=== PATIENT | female | born 1945 | race Caucasian/White ===

== ENCOUNTER → 2016-09-10 | Outpatient (CLI) | payer BC ==
[~2016-09-10] MED LIST: ASPCH81X PO; ATOR-22 PO; CALCTAB5 PO; COEN1CAP7 PO; DEXL30CA5 PO; FLAX100025 PO; FOLI1TAB7 PO; MISCCAP80 PO; MISCTAB78 PO; MULT-506 PO; OMEG10007 PO; PRM625 VA; ZNTT/150 PO
[2016-09-10 09:56] LABS: ALT/SGPT 25 U/L (12-78); BLOOD UREA NITROGEN 17 mg/dl (7-18); BUN/CREATININE RATIO 21.3 (10-20); CALCIUM 9.9 mg/dl (8.5-10.1); CARBON DIOXIDE 28 mmol/L (21-32); CHLORIDE 108 mmol/L (98-107); CHOLESTEROL 169 mg/dl (0-200); GLUCOSE 97 mg/dl (70-99); SODIUM 144 mmol/L (136-145); TRIGLYCERIDES 115 mg/dl (0-150); VERY LOW DENSITY LIPOPROT CALC 23 mg/dl
[2016-09-10 09:59] LABS: ALB/GLOB RATIO 1.2 (0.9-2); ALKALINE PHOSPHATASE 77 U/L (45-117); AST/SGOT 23 U/L (15-37); CHOLESTEROL/HDL RATIO 3.2; HDL CHOLESTEROL 53 mg/dl; LDL CHOLESTEROL CALCULATED 93 mg/dl
== END | disposition home or self-care (01) ==
LOC: C.LAB1850 07:43
PROVIDERS: ATTEND Family Medicine
DX: E78.00 Pure hypercholesterolemia, unspecified (principal); K21.9 Gastro-esophageal reflux disease without esophagitis; Z85.42 Personal history of malignant neoplasm of other parts of uterus

== ENCOUNTER → 2016-10-19 | Outpatient (CLI) | payer BC ==
--- NOTE | 2016-10-23 12:55 | CODING QUERY MEDICAL NECESSITY ---
CQSUPPORTING DIAGNOSIS NEEDED A supporting diagnosis is required for the test/procedure performed on this patient in order for us to be reimbursed by the patient's insurance. Please provide a supporting diagnosis for the following test/procedure listed below next to the test name along with your signature. *If there is no additional diagnosis for this patient that would support the following test/procedure please document that below next to the test/procedure. Test(s)/Procedure(s) that require a supporting diagnosis: DOS 10/19/16 VITAMIN D TEST Provider Signature: Date: Thank you Kenyatta Dill Health Information Management Once completed, please kindly fax back to [phone] For questions please call [phone]
== END ==
LOC: C.LAB1850 11:55
PROVIDERS: ATTEND Family Medicine
DX: L60.3 Nail dystrophy (principal)

== ENCOUNTER → 2016-12-15 | Outpatient (CLI) | payer BC ==
--- NOTE | 2016-12-15 14:42 | MAMMOGRAPHY REPORT ---
BILATERAL DIGITAL SCREENING MAMMOGRAM WITH CAD: 12/15/2016 CLINICAL HISTORY: Routine screening. Patient has no complaints. TECHNIQUE: Bilateral CC and MLO views were obtained. Current study was also evaluated with a Compute r Aided Detection (CAD) system. COMPARISON: Comparison is made to exams dated: 12/10/2015 mammogram, 12/06/2014 mammogram, 11/30/2013 alex mogram, 11/24/2012 mammogram, 11/18/2010 mammogram, and 11/15/2009 mammogram - [facility]. BREAST COMPOSITION: There are scattered areas of fibroglandular density in both breasts. FINDINGS: A linear scar marker overlies the 12:00 right breast, denoting an area of skin surgical sc ar. The parenchymal pattern is similar to prior mammograms. No new suspicious mass, architectural d istortion or cluster of microcalcifications is seen. IMPRESSION: ACR BI-RADS CATEGORY 1: NEGATIVE Stable post surgical changes in the right breast. There is no mammographic evidence of malignancy. A 1 year screening mammogram is recommended. The patient will receive written notification of the res ults. Approximately 10% of breast cancers are not detected with mammography. A negative mammographic report should not delay biopsy if a clinically suggestive mass is present. Hattie Lee M.D. ay/:12/15/2016 10:04:36 Turkey Roll Maker: Jennifer REA(Robin)(M), [facility] letter sent: Normal 1/2 BI-RADS Code: ACR BI-RADS Category 1: Negative
== END | disposition home or self-care (01) ==
LOC: C.MAMM 09:19
PROVIDERS: ATTEND Obstetrics & Gynecology
DX: Z12.31 Encounter for screening mammogram for malignant neoplasm of breast (principal)

== ENCOUNTER → 2017-06-14 | Outpatient (CLI) | payer BC ==
[~2017-06-14] MED LIST changes: -FOLI1TAB7 PO; +FOLI1TAB8 PO
[2017-06-14 10:13] LABS: ALT/SGPT 27 U/L (12-78); BLOOD UREA NITROGEN 14 mg/dl (7-18); BUN/CREATININE RATIO 18.2 (10-20); CALCIUM 9.3 mg/dl (8.5-10.1); CARBON DIOXIDE 28 mmol/L (21-32); CHLORIDE 107 mmol/L (98-107); CREATININE 0.76 mg/dl (0.60-1.20); GLUCOSE 91 mg/dl (70-99); POTASSIUM 3.5 mmol/L (3.5-5.1); SODIUM 140 mmol/L (136-145)
[2017-06-14 10:16] LABS: CHOLESTEROL 150 mg/dl (0-200); HDL CHOLESTEROL 50 mg/dl; LDL CHOLESTEROL CALCULATED 72 mg/dl; TRIGLYCERIDES 141 mg/dl (0-150); VERY LOW DENSITY LIPOPROT CALC 28 mg/dl
== END | disposition home or self-care (01) ==
LOC: C.LAB1850 08:56
PROVIDERS: ATTEND Family Medicine
DX: E78.00 Pure hypercholesterolemia, unspecified (principal)

== ENCOUNTER → 2018-02-02 | Outpatient (CLI) | payer BC ==
[~2018-02-02] MED LIST changes: +RANI150T85 PO; -ZNTT/150 PO
--- NOTE | 2018-02-02 14:55 | MAMMOGRAPHY REPORT ---
BILATERAL DIGITAL SCREENING MAMMOGRAM TOMOSYNTHESIS WITH CAD: 02/02/2018 CLINICAL HISTORY: Routine screening. Patient has no complaints. TECHNIQUE: The study was acquired using full field digital technology and interpreted from soft copy. Breast tomosynthesis in addition to standard 2D mammography was performed. Current study was also ev aluated with a Computer Aided Detection (CAD) system. COMPARISON: Comparison is made to exams dated: 12/15/2016 mammogram, 12/10/2015 mammogram, 12/06/2014 alex mogram, 11/30/2013 mammogram, 11/24/2012 mammogram, and 11/24/2011 mammogram - [facility]. BREAST COMPOSITION: There are scattered areas of fibroglandular density in both breasts. FINDINGS: A linear scar marker overlies the superior right breast. No suspicious mass, architectural distortion or cluster of microcalcifications is seen. IMPRESSION: ACR BI-RADS CATEGORY 1: NEGATIVE There is no mammographic evidence of malignancy. A 1 year screening mammogram is recommended.( 019) The patient will receive written notification of the results. Some breast cancers are not detected with mammography. A negative mammographic report should not bi y biopsy if a clinically suggestive mass is present. Hattie Lee M.D. ay/:02/02/2018 12:30:46 Senior Marketing Coordinator: Kathryn Reed, [facility] letter sent: Normal 1/2 BI-RADS Code: ACR BI-RADS Category 1: Negative
== END | disposition home or self-care (01) ==
LOC: C.MAMM 11:02
PROVIDERS: ATTEND Obstetrics & Gynecology
DX: Z12.31 Encounter for screening mammogram for malignant neoplasm of breast (principal)

== ENCOUNTER 2023-01-17 11:04 | Observation (INO) ==
[2023-01-17] MEDS ORDERED: SODIUM CHLORIDE 0.9% 1000ML 1,000 ML IV SCH (11:30)
[2023-01-17] MEDS ORDERED: SODIUM CHLORIDE 0.9% 500 ML IV SCH (11:30)
--- NOTE | 2023-01-17 11:48 | XRay Report ---
XR chest 1V portable CLINICAL HISTORY: weakness TECHNIQUE: Single frontal radiograph of the chest was obtained. Comparison: Comparison is made to chest radiograph 04/06/2014 FINDINGS: No lines and tubes are seen. Calcified aortic knob is seen. The lungs are clear. No evidence of pleur al effusion or pneumothorax. IMPRESSION: No acute chest disease. ACT 112: Negative or not required by law. Electronically signed by: Andrea Paulino M.D. 01/17/2023 11:46 AM
[2023-01-17 12:42] LABS: Basophils # (auto) 0.01 K/uL (0-0.2); Basophils % (auto) 0.1 %; Hematocrit (blood only) 35.3 % (37.0-47.0); Immature Granulocytes # (auto) 0.05 K/uL (0.01-0.20); Immature Granulocytes % (auto) 0.7 %; Lymphocytes % (auto) 10.5 %; Mean Corpuscular Hemoglobin 32.2 pg (25.0-34.0); Mean Corpuscular Volume 94.6 fL (80.0-100.0); Mean Platelet Volume 9.1 fL (9.4-12.4); Monocytes # (auto) 0.55 K/uL (0.11-0.59); Monocytes % (auto) 7.2 %; Neutrophils % (auto) 81.5 %; Platelet Count 205 K/uL (130-400); RDW Coefficient of Variation 13.7 % (11.5-14.5); RDW Standard Deviation 47.7 fL (36.4-46.3); Red Blood Count 3.73 M/uL (4.20-5.40); White Blood Count 7.61 K/ul (4.8-10.8)
--- NOTE | 2023-01-17 12:43 | Electrocardiogram Report ---
Test Reason : Blood Pressure : / mmHG Vent. Rate : 076 BPM Atrial Rate : 076 BPM P-R Int : 152 ms QRS Dur : 076 ms QT Int : 360 ms P-R-T Axes : 054 041 044 degrees QTc Int : 405 ms Normal sinus rhythm Normal ECG When compared with ECG of 03-SEP-2020 15:41, ST no longer depressed in Inferior leads Confirmed by Eber Jeter ([id number]) on 01/17/2023 12:43:39 PM Referred By: Confirmed By:Eber Jeter
[2023-01-17 12:51] LABS: Albumin Globulin Ratio 1.3 (0.9-2); Albumin Level 4.3 gm/dl (3.4-5.0); BUN Creatinine Ratio 15.1 (10-20); Bilirubin,Total 0.5 mg/dl (0.2-1.0); Creatinine Clr Calc Pharmacy 52.2 ml/min; Est GFR (African American) 76.1 ml/min; Est GFR (Non-African American) 65.6 ml/min; Globulin 3.2 gm/dl (2.5-4.0); Magnesium 1.9 mg/dl (1.7-2.4); Potassium 3.6 mmol/L (3.5-5.1); Total Protein 7.5 gm/dl (6.0-8.3)
[2023-01-17 13:10] LABS: Lyme Ab IgG w/WB Rflx Negative (Negative); Lyme Ab IgM w/WB Rflx Negative (Negative)
[2023-01-17] MEDS ORDERED: OPTIRAY 320 100ml IV ONE (13:13)
--- NOTE | 2023-01-17 13:23 | Emergency Department Note ---
Impression & Plan Febrile illness, acute, Abdominal pain, lower, Acute lactic acidosis, Acute hypotension ED Provider Note INFORMANT: Patient ED PROVIDER(S): Malik Royal MD CHIEF COMPLAINT: Fever and chills PLAN: Disposition: Admitted Condition: Good Outpatient prescription management: none Referral: None MEDICAL DECISION MAKING: Patient presented because of fever and chills. She also noted lower abdominal pain which had resolved. CT imaging was performed and did not reveal any acute intra-abdominal findings. Her CBC and chemistry panel were unremarkable. Patient did have an elevated lactate and her urinalysis was negative. Patient was hydrated and her lactate did clear. Her ECG was normal. Patient was still having chills. Blood cultures were obtained. I am concerned the patient may have a possible tickborne infection or may be bacteremia. She is on methotrexate. Patient was treated with IV doxycycline and Rocephin empirically. [facility] Case was discussed and diagnostics were reviewed. Patient was evaluated in the ER and admitted for further management. Discussed with manager program After review of the information above and other included data, I feel the patient requires admission. Triage Nursing notes reviewed and agree them. Vital Signs: reviewed and remarkable for hypotension which resolved Prior /Outside records reviewed: none Differential diagnosis: Viral syndrome, tickborne illness,Sepsis, UTI, pneumonia, metabolic, electrolyte abnormalities, cardiac sources, intracerebral event, toxicologic, neurologic, as well as other pathologies. Diagnostics, as interpreted by me: EC Lead ECG performed and revealed Normal sinus rhythm at 76 bpm, normal Farner, QRS normal. No elevation or depression. No PACs or PVCs Cardiac Monitoring: Cardiac monitoring ordered by me: The patient was placed on continuous cardiac monitoring and observed. It revealed a normal sinus rhythm at 80 beats per minute without ectopy or evidence of dysrhythmia. Medical decision rules: none Imaging studies: Chest x-ray. Findings: A chest x-ray was performed and revealed no pneumothorax, effusion, infiltrate, pulmonary edema, free air under the diaphragm, or wide mediastinum. Impression: No acute disease. CT scan of the abdomen pelvis is negative for acute process. I refer you to the EMR for further details. HPI: The patient is a 77year old female who presents to the Emergency Room with complaints of fever and chills. This started this week and is fluctuating. Patient also feels generally weak. The patient also notes the following associated symptoms, lower abdominal pain that was there at the beginning of the week but has improved. The patient has found no relieving factors. Current pain is rated as 0/10. Patient does spend a lot of time outdoors. No obvious bug bites or tick bites per her recall. Pt denies LOC, headache, diaphoresis, visual changes, neck pain, chest pain, breathing difficulties, nausea, vomiting, back pain, melena, hematochezia, urinary symptoms, numbness, lymphadenopathy, rash, or other complaints. PAST MEDICAL HISTORY: See Below, hyperlipidemia PAST SURGICAL HISTORY: See Below, knee replacement SOCIAL HISTORY: See Below, HOME MEDICATIONS: See Below ALLERGIES: See Below VITALS: See Below PHYSICAL EXAMINATION: GENERAL: Awake, tired-appearing, in no distress HENT: Normocephalic, atraumatic. Oropharynx unremarkable. EYES: Normal conjunctiva. Sclera non-icteric. NECK: Inspection normal. Non-tender. Supple. No nuchal rigidity. FROM. No masses. RESPIRATORY: Clear to auscultation. No wheezes. No rales. Normal respiratory effort. CARDIAC: Normal rate. Normal rhythm. No murmurs. No rubs. Extremities warm and well perfused. Pulses equal. No JVD. GI: Soft, non-distended. No tenderness to palpation. No rebound or guarding. No masses. RECTAL: Deferred. MUSCULOSKELETAL: Atraumatic. Chest examination reveals no tenderness. The back is symmetrical on inspection without obvious abnormality. There is no CVA tenderness to palpation. No joint edema. LOWER EXTREMITIES: Calves are equal size bilaterally and non-tender. No edema. No discoloration. NEURO: Normal sensorium. No sensory or motor deficits noted. SKIN: No rash or jaundice noted. 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 Hypercholesterolemia Nausea and vomiting after administration of anesthetic agent NAUSEA Polymyalgia rheumatica Restless legs syndrome PT REPORTS HX - NOT CURRENT PROBLEM Surgical History (Updated 09/30/22 @ 11:44 by Pat Garcia MD) History of foot surgery LEFT GREAT TOE History of hysteroscopy History of right cataract extraction History of total knee arthroplasty LEFT 2013 S/P colonoscopy HX S/P dilation and curettage HX S/P laparoscopy HX S/P MIGUEL-BSO (total abdominal hysterectomy and bilateral salpingo-oophorectomy) 2001 due to adenocarcinoma on D&C, final path showed no residual adenocarcinoma S/P tubal ligation S/P wisdom tooth extraction HX S/P wrist surgery Family History (Updated 09/30/22 @ 11:45 by Pat Garcia MD) Sister Breast cancer Family history of diabetes mellitus Father Heart disease Myocardial infarction Mother Osteoporosis Brother Brain bleed Bladder cancer Sister Lung cancer Denies family history of Ovarian cancer Prostate cancer Colorectal cancer Social History (Updated 09/30/22 @ 11:20 by Taylor Campos LPN) Smoking Status: Never smoker Second Hand Exposure: No; Do You Dip or Chew Tobacco: No; Tobacco Cessation Education Requested by Patient: No Hx Alcohol Use: Yes Alcohol type: wine Alcohol Intake Frequency: 4 or More x per/Week Hx Substance Use: No Preferred Language: Croatian Communication Ability: Effective Visual Impairment: No Limitations Hearing Ability: Hard of Hearing 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 Beliefs That Will Affect Care: None marital status: Current Living Situation: Spouse Current Living Situation Comment: Home with spoue current occupational status: retired How many Children do You have: 2 Other Information That Helps Us Care for You: No Feels Safe at Home: Yes Safety Concerns: Feels Safe At This Time Childhood Exposure to Second-Hand Smoke: Yes Diet: regular Diet Comment: regular caffeine: Yes during the past year weight has: increased > 10 lbs Dental Care, Regularly: Yes Physical Activity Frequency: Daily Seatbelt Use: always Sunscreen Use: Yes Assistive Devices: None Allergies Allergies Allergy/AdvReac Type Severity Reaction Status Date / Time grass pollen Allergy Unknown NASAL Verified 09/30/22 11:18 CONGESTION, SNEEZING house dust mite Allergy Unknown NASAL Verified 09/30/22 11:18 CONGESTION, SNEEZING No Known Drug Allergies Allergy Unknown . Verified 09/30/22 11:18 Home Meds Home Medications Medication Instructions Recorded Confirmed pfwubcshizwi-xuzcbozm-obppry tablet 1 tab PO DAILY 12/22/18 01/17/23 amoxicillin 500 mg capsule 2,000 mg PO UD PRN PRE DENTAL #4 04/18/19 01/17/23 caps aspirin 81 mg tablet,delayed 81 mg PO Q2D 06/29/19 01/17/23 release biotin 5,000 mcg disintegrating 5,000 mcg PO DAILY 05/15/20 01/17/23 tablet coenzyme Q10 100 mg capsule 200 mg PO DAILY 05/15/20 01/17/23 (CoQ-10) cholecalciferol (vitamin D3) 25 25 mcg PO Q2D 01/17/23 01/17/23 mcg (1,000 unit) tablet (Vitamin D3) folic acid 1 mg tablet 2 mg PO QAM 01/17/23 01/17/23 methotrexate sodium 2.5 mg tablet 15 mg PO WK 01/17/23 01/17/23 omeprazole 20 mg capsule,delayed 20 mg PO QAM 01/17/23 01/17/23 release prednisone 1 mg tablet 0.5 mg PO DAILY 01/17/23 01/17/23 Previous Rx's Medication Instructions Recorded montelukast 10 mg tablet 10 mg PO QAM #90 tabs 08/31/22 atorvastatin 20 mg tablet 20 mg PO QPM hypercholesterolemia 12/16/22 #90 tabs Results & Data (ED) Vital Signs Vital Signs - 24 hr 01/17/23 11:12 01/17/23 11:47 01/17/23 11:45 Temperature 36.7 C Temperature Source Oral Pulse Rate 71 73 Pulse Rate [Apical] Pulse Rate from SpO2 Sensor Respiratory Rate 20 Respiratory Effort / Characteristics Non-Labored Spontaneous Respiratory Depth Normal Respiratory Pattern Regular Blood Pressure 97/56 L Blood Pressure [Left Arm] Blood Pressure Mean 69 Blood Pressure Mean [Left Arm] Blood Pressure Position Sitting Pulse Oximetry 100 Oxygen Delivery Method Room Air Room Air Sepsis Recent Fever Within 48 Hours Yes Sepsis New/Unexplained Change in Mental Status No Sepsis Action Taken by Nursing No Action Required 01/17/23 11:57 01/17/23 11:57 01/17/23 12:00 Temperature Temperature Source Pulse Rate 79 73 Pulse Rate [Apical] Pulse Rate from SpO2 Sensor 78 73 Respiratory Rate 19 19 Respiratory Effort / Characteristics Respiratory Depth Respiratory Pattern Blood Pressure 133/78 Blood Pressure [Left Arm] Blood Pressure Mean 111 Blood Pressure Mean [Left Arm] Blood Pressure Position Pulse Oximetry 98 97 Oxygen Delivery Method Sepsis Recent Fever Within 48 Hours Sepsis New/Unexplained Change in Mental Status Sepsis Action Taken by Nursing 01/17/23 12:00 01/17/23 12:30 01/17/23 12:30 Temperature Temperature Source Pulse Rate 72 Pulse Rate [Apical] Pulse Rate from SpO2 Sensor 74 Respiratory Rate 15 Respiratory Effort / Characteristics Respiratory Depth Respiratory Pattern Blood Pressure 128/59 L 133/65 Blood Pressure [Left Arm] Blood Pressure Mean 92 89 Blood Pressure Mean [Left Arm] Blood Pressure Position Pulse Oximetry 96 Oxygen Delivery Method Sepsis Recent Fever Within 48 Hours Sepsis New/Unexplained Change in Mental Status Sepsis Action Taken by Nursing 01/17/23 13:00 01/17/23 13:00 01/17/23 14:08 Temperature Temperature Source Pulse Rate 81 79 Pulse Rate [Apical] Pulse Rate from SpO2 Sensor 81 80 Respiratory Rate 14 19 Respiratory Effort / Characteristics Respiratory Depth Respiratory Pattern Blood Pressure 146/68 H Blood Pressure [Left Arm] Blood Pressure Mean 92 Blood Pressure Mean [Left Arm] Blood Pressure Position Pulse Oximetry 96 97 Oxygen Delivery Method Sepsis Recent Fever Within 48 Hours Sepsis New/Unexplained Change in Mental Status Sepsis Action Taken by Nursing 01/17/23 15:49 01/17/23 17:00 01/17/23 17:54 Temperature 38 C H Temperature Source Oral Pulse Rate 81 Pulse Rate [Apical] 82 84 Pulse Rate from SpO2 Sensor Respiratory Rate 18 16 Respiratory Effort / Characteristics Respiratory Depth Respiratory Pattern Blood Pressure Blood Pressure [Left Arm] 136/71 139/78 Blood Pressure Mean Blood Pressure Mean [Left Arm] 92 98 Blood Pressure Position Pulse Oximetry 96 95 Oxygen Delivery Method Room Air Room Air Sepsis Recent Fever Within 48 Hours Sepsis New/Unexplained Change in Mental Status Sepsis Action Taken by Nursing Laboratory Data 01/17/23 11:55 01/17/23 11:55 Lab Results 01/17/23 01/17/23 01/17/23 Range/Units 11:55 11:55 11:55 WBC 7.61 (4.8-10.8) K/ul RBC 3.73 L (4.20-5.40) M/uL Hgb 12.0 (12.0-16.0) g/dl Hct 35.3 L (37.0-47.0) % MCV 94.6 (80.0-100.0) fL MCH 32.2 (25.0-34.0) pg MCHC 34.0 (32.0-36.0) g/dL RDW Std Deviation 47.7 H (36.4-46.3) fL RDW Coeff of Leobardo 13.7 (11.5-14.5) % Plt Count 205 (130-400) K/uL MPV 9.1 L (9.4-12.4) fL Immature Gran % (Auto) 0.7 % Neut % (Auto) 81.5 % Lymph % (Auto) 10.5 % Caswell % (Auto) 7.2 % Eos % (Auto) 0.0 % Baso % (Auto) 0.1 % Neut # (Auto) 6.20 (1.40-6.50) K/uL Lymph # (Auto) 0.80 L (1.2-3.4) K/uL [place] # (Auto) 0.55 (0.11-0.59) K/uL Eos # (Auto) 0.00 (0-0.50) K/uL Baso # (Auto) 0.01 (0-0.2) K/uL Immature Gran # (Auto) 0.05 (0.01-0.20) K/uL ESR (0-30) mm/hr Sodium 135 L (136-145) mmol/L Potassium 3.6 (3.5-5.1) mmol/L Chloride 100 (98-107) mmol/L Carbon Dioxide 26 (21-32) mmol/L Anion Gap 9 (3-11) BUN 13 (6-23) mg/dl Creatinine 0.86 (0.6-1.2) mg/dl Est Cr Clr Drug Dosing 52.2 ml/min Est GFR ( Amer) 76.1 ml/min Est GFR (Non-Af Amer) 65.6 ml/min BUN/Creatinine Ratio 15.1 (10-20) Glucose 116 H (70-99(Fasting)) mg/dl Lactate 2.5 H* (0.4-2.0) mmol/L Calcium 10.0 (8.6-10.3) mg/dl Magnesium 1.9 (1.7-2.4) mg/dl Total Bilirubin 0.5 (0.2-1.0) mg/dl AST 37 (13-39) U/L ALT 24 (7-52) U/L Alkaline Phosphatase 59 (34-104) U/L Total Creatine Kinase 80 (26-192) U/L Troponin I High Sens 4.0 (0-14) pg/ml C-Reactive Protein 5.77 H (0-0.5) mg/dl Total Protein 7.5 (6.0-8.3) gm/dl Albumin 4.3 (3.4-5.0) gm/dl Globulin 3.2 (2.5-4.0) gm/dl Albumin/Globulin Ratio 1.3 (0.9-2) Procalcitonin (0-0.5) ng/ml TSH (0.300-4.500) uIu/ml Urine Color Urine Appearance (Clear) Urine pH (4.5-7.5) Ur Specific [place] (1.000-1.030) Urine Protein (Negative) Urine Glucose (UA) (Negative) Urine Ketones (Negative) Urine Blood (Negative) Urine Nitrite (Negative) Urine Bilirubin (Negative) Urine Urobilinogen (Negative) Ur Leukocyte Esterase (Negative) Urine WBC (Auto) (0-5) /hpf Urine RBC (Auto) (0-4) /hpf U Hyaline Cast (Auto) (0-5) /lpf U Epithel Cells (Auto) (0-5) /lpf Urine Bacteria (Auto) (Negative) Anaplasma Smear See Comment Babesia Smear See Comment Lyme Disease IgG Ab (Negative) Lyme Disease IgM Ab (Negative) SARS-CoV-2, RNA, NAAT (NEGATIVE) 01/17/23 01/17/23 01/17/23 Range/Units 11:55 12:09 12:19 WBC (4.8-10.8) K/ul RBC (4.20-5.40) M/uL Hgb (12.0-16.0) g/dl Hct (37.0-47.0) % MCV (80.0-100.0) fL MCH (25.0-34.0) pg MCHC (32.0-36.0) g/dL RDW Std Deviation (36.4-46.3) fL RDW Coeff of Leobardo (11.5-14.5) % Plt Count (130-400) K/uL MPV (9.4-12.4) fL Immature Gran % (Auto) % Neut % (Auto) % Lymph % (Auto) % [place] % (Auto) % Eos % (Auto) % Baso % (Auto) % Neut # (Auto) (1.40-6.50) K/uL Lymph # (Auto) (1.2-3.4) K/uL [place] # (Auto) (0.11-0.59) K/uL Eos # (Auto) (0-0.50) K/uL Baso # (Auto) (0-0.2) K/uL Immature Gran # (Auto) (0.01-0.20) K/uL ESR (0-30) mm/hr Sodium (136-145) mmol/L Potassium (3.5-5.1) mmol/L Chloride (98-107) mmol/L Carbon Dioxide (21-32) mmol/L Anion Gap (3-11) BUN (6-23) mg/dl Creatinine (0.6-1.2) mg/dl Est Cr Clr Drug Dosing ml/min Est GFR ( Amer) ml/min Est GFR (Non-Af Amer) ml/min BUN/Creatinine Ratio (10-20) Glucose (70-99(Fasting)) mg/dl Lactate (0.4-2.0) mmol/L Calcium (8.6-10.3) mg/dl Magnesium (1.7-2.4) mg/dl Total Bilirubin (0.2-1.0) mg/dl AST (13-39) U/L ALT (7-52) U/L Alkaline Phosphatase (34-104) U/L Total Creatine Kinase (26-192) U/L Troponin I High Sens (0-14) pg/ml C-Reactive Protein (0-0.5) mg/dl Total Protein (6.0-8.3) gm/dl Albumin (3.4-5.0) gm/dl Globulin (2.5-4.0) gm/dl Albumin/Globulin Ratio (0.9-2) Procalcitonin (0-0.5) ng/ml TSH 1.903 (0.300-4.500) uIu/ml Urine Color Urine Appearance (Clear) Urine pH (4.5-7.5) Ur Specific [place] (1.000-1.030) Urine Protein (Negative) Urine Glucose (UA) (Negative) Urine Ketones (Negative) Urine Blood (Negative) Urine Nitrite (Negative) Urine Bilirubin (Negative) Urine Urobilinogen (Negative) Ur Leukocyte Esterase (Negative) Urine WBC (Auto) (0-5) /hpf Urine RBC (Auto) (0-4) /hpf U Hyaline Cast (Auto) (0-5) /lpf U Epithel Cells (Auto) (0-5) /lpf Urine Bacteria (Auto) (Negative) Anaplasma Smear Babesia Smear Lyme Disease IgG Ab Negative (Negative) Lyme Disease IgM Ab Negative (Negative) SARS-CoV-2, RNA, NAAT NEGATIVE (NEGATIVE) 01/17/23 01/17/23 01/17/23 Range/Units 12:19 12:19 14:24 WBC (4.8-10.8) K/ul RBC (4.20-5.40) M/uL Hgb (12.0-16.0) g/dl Hct (37.0-47.0) % MCV (80.0-100.0) fL MCH (25.0-34.0) pg MCHC (32.0-36.0) g/dL RDW Std Deviation (36.4-46.3) fL RDW Coeff of Leobardo (11.5-14.5) % Plt Count (130-400) K/uL MPV (9.4-12.4) fL Immature Gran % (Auto) % Neut % (Auto) % Lymph % (Auto) % [place] % (Auto) % Eos % (Auto) % Baso % (Auto) % Neut # (Auto) (1.40-6.50) K/uL Lymph # (Auto) (1.2-3.4) K/uL [place] # (Auto) (0.11-0.59) K/uL Eos # (Auto) (0-0.50) K/uL Baso # (Auto) (0-0.2) K/uL Immature Gran # (Auto) (0.01-0.20) K/uL ESR 46 H (0-30) mm/hr Sodium (136-145) mmol/L Potassium (3.5-5.1) mmol/L Chloride (98-107) mmol/L Carbon Dioxide (21-32) mmol/L Anion Gap (3-11) BUN (6-23) mg/dl Creatinine (0.6-1.2) mg/dl Est Cr Clr Drug Dosing ml/min Est GFR ( Amer) ml/min Est GFR (Non-Af Amer) ml/min BUN/Creatinine Ratio (10-20) Glucose (70-99(Fasting)) mg/dl Lactate 1.4 (0.4-2.0) mmol/L Calcium (8.6-10.3) mg/dl Magnesium (1.7-2.4) mg/dl Total Bilirubin (0.2-1.0) mg/dl AST (13-39) U/L ALT (7-52) U/L Alkaline Phosphatase (34-104) U/L Total Creatine Kinase (26-192) U/L Troponin I High Sens (0-14) pg/ml C-Reactive Protein (0-0.5) mg/dl Total Protein (6.0-8.3) gm/dl Albumin (3.4-5.0) gm/dl Globulin (2.5-4.0) gm/dl Albumin/Globulin Ratio (0.9-2) Procalcitonin 0.30 (0-0.5) ng/ml TSH (0.300-4.500) uIu/ml Urine Color Urine Appearance (Clear) Urine pH (4.5-7.5) Ur Specific [place] (1.000-1.030) Urine Protein (Negative) Urine Glucose (UA) (Negative) Urine Ketones (Negative) Urine Blood (Negative) Urine Nitrite (Negative) Urine Bilirubin (Negative) Urine Urobilinogen (Negative) Ur Leukocyte Esterase (Negative) Urine WBC (Auto) (0-5) /hpf Urine RBC (Auto) (0-4) /hpf U Hyaline Cast (Auto) (0-5) /lpf U Epithel Cells (Auto) (0-5) /lpf Urine Bacteria (Auto) (Negative) Anaplasma Smear Babesia Smear Lyme Disease IgG Ab (Negative) Lyme Disease IgM Ab (Negative) SARS-CoV-2, RNA, NAAT (NEGATIVE) 01/17/23 Range/Units 15:34 WBC (4.8-10.8) K/ul RBC (4.20-5.40) M/uL Hgb (12.0-16.0) g/dl Hct (37.0-47.0) % MCV (80.0-100.0) fL MCH (25.0-34.0) pg MCHC (32.0-36.0) g/dL RDW Std Deviation (36.4-46.3) fL RDW Coeff of Leobardo (11.5-14.5) % Plt Count (130-400) K/uL MPV (9.4-12.4) fL Immature Gran % (Auto) % Neut % (Auto) % Lymph % (Auto) % [place] % (Auto) % Eos % (Auto) % Baso % (Auto) % Neut # (Auto) (1.40-6.50) K/uL Lymph # (Auto) (1.2-3.4) K/uL [place] # (Auto) (0.11-0.59) K/uL Eos # (Auto) (0-0.50) K/uL Baso # (Auto) (0-0.2) K/uL Immature Gran # (Auto) (0.01-0.20) K/uL ESR (0-30) mm/hr Sodium (136-145) mmol/L Potassium (3.5-5.1) mmol/L Chloride (98-107) mmol/L Carbon Dioxide (21-32) mmol/L Anion Gap (3-11) BUN (6-23) mg/dl Creatinine (0.6-1.2) mg/dl Est Cr Clr Drug Dosing ml/min Est GFR ( Amer) ml/min Est GFR (Non-Af Amer) ml/min BUN/Creatinine Ratio (10-20) Glucose (70-99(Fasting)) mg/dl Lactate (0.4-2.0) mmol/L Calcium (8.6-10.3) mg/dl Magnesium (1.7-2.4) mg/dl Total Bilirubin (0.2-1.0) mg/dl AST (13-39) U/L ALT (7-52) U/L Alkaline Phosphatase (34-104) U/L Total Creatine Kinase (26-192) U/L Troponin I High Sens (0-14) pg/ml C-Reactive Protein (0-0.5) mg/dl Total Protein (6.0-8.3) gm/dl Albumin (3.4-5.0) gm/dl Globulin (2.5-4.0) gm/dl Albumin/Globulin Ratio (0.9-2) Procalcitonin (0-0.5) ng/ml TSH (0.300-4.500) uIu/ml Urine Color Yellow Urine Appearance Clear (Clear) Urine pH 6.5 (4.5-7.5) Ur Specific [place] 1.033 H (1.000-1.030) Urine Protein 1+ H (Negative) Urine Glucose (UA) Negative (Negative) Urine Ketones Negative (Negative) Urine Blood Trace H (Negative) Urine Nitrite Negative (Negative) Urine Bilirubin Negative (Negative) Urine Urobilinogen Negative (Negative) Ur Leukocyte Esterase Negative (Negative) Urine WBC (Auto) 1-5 (0-5) /hpf Urine RBC (Auto) 0-4 (0-4) /hpf U Hyaline Cast (Auto) 1-5 (0-5) /lpf U Epithel Cells (Auto) 10-20 H (0-5) /lpf Urine Bacteria (Auto) Negative (Negative) Anaplasma Smear Babesia Smear Lyme Disease IgG Ab (Negative) Lyme Disease IgM Ab (Negative) SARS-CoV-2, RNA, NAAT (NEGATIVE) Administered Medications Atorvastatin Calcium (Atorvastatin 20 Mg Tab) 20 mg PO QPM BONNIE Stop: 02/16/23 20:59 Last Admin: 01/17/23 21:00 Dose: 20 mg Documented By: MAURO Enoxaparin Sodium (Enoxaparin Inj 40 Mg/0.4 Ml Syr) 40 mg SQ Q24H BONNIE Stop: 02/16/23 21:59 Last Admin: 01/17/23 21:25 Dose: Not Given Documented By: MAURO Discontinued Medications Acetaminophen (Acetaminophen 500 Mg Tab) 1,000 mg PO NOW STA Stop: 01/17/23 17:12 Last Admin: 01/17/23 17:32 Dose: 1,000 mg Documented By: QGV Sodium Chloride (Nss 1000ml) 1,000 mls @ 125 mls/hr IV .Q8H BONNIE Stop: 01/17/23 19:29 Last Infusion: 01/17/23 15:31 Dose: 0 mls/hr Documented By: Infusion: 01/17/23 14:15 Dose: 999 mls/hr Documented By: Admin: 01/17/23 12:29 Dose: 125 mls/hr Documented By: QGV Sodium Chloride (Nss) 500 mls @ 999 mls/hr IV .Q31M BONNIE Stop: 01/17/23 12:00 Last Infusion: 01/17/23 13:13 Dose: 0 mls/hr Documented By: Admin: 01/17/23 12:27 Dose: 999 mls/hr Documented By: QGV Sodium Chloride (Nss 1000ml) 1,000 mls @ 999 mls/hr IV .Q1H1M ONE Stop: 01/17/23 14:57 Last Admin: 01/17/23 16:56 Dose: Not Given Documented By: QGV Ceftriaxone Sodium (Rocephin) 2,000 mg in 70 mls @ 140 mls/hr IV NOW STA Stop: 01/17/23 16:44 Last Infusion: 01/17/23 17:55 Dose: 0 mls/hr Documented By: Admin: 01/17/23 16:56 Dose: 140 mls/hr Documented By: QGV Doxycycline Hyclate 100 mg/ (Dextrose) 110 mls @ 50 mls/hr IV NOW STA Stop: 01/17/23 18:31 Last Infusion: 01/17/23 20:07 Dose: 0 mls/hr Documented By: Admin: 01/17/23 17:55 Dose: 50 mls/hr Documented By: MT Ioversol (Optiray 320 100ml) 91 ml IV ONCE ONE Stop: 01/17/23 13:14 Last Admin: 01/17/23 13:13 Dose: 91 ml Documented By: OZIEL Imaging Data Radiologist's Impression: Chest X-Ray 01/17/23 11:23 XR chest 1V portable CLINICAL HISTORY: weakness TECHNIQUE: Single frontal radiograph of the chest was obtained. Comparison: Comparison is made to chest radiograph 04/06/2014 FINDINGS: No lines and tubes are seen. Calcified aortic knob is seen. The lungs are clear. No evidence of pleural effusion or pneumothorax. IMPRESSION: No acute chest disease. ACT 112: Negative or not required by law. Electronically signed by: Andrea Paulino M.D. 01/17/2023 11:46 AM Abdomen/Pelvis CT 01/17/23 12:00 CT abd pelvis IV con only CLINICAL HISTORY: lower abd pain, fever TECHNIQUE: Helical axial images of the abdomen and pelvis were obtained and displayed. Automated dose lowering techniques and/or adjustment according to patient size were utilized for this exam. This exam was performed with intravenous contrast. CT DOSE: 750.48 mGy.cm COMPARISON: Comparison is made to CT abdomen pelvis 06/07/2006 FINDINGS: Lower chest: No acute abnormality. Liver: Unremarkable. No focal lesions are seen. Gallbladder and biliary tree: No calcified gallstones. Normal caliber wall. No intra- or extrahepatic biliary ductal dilation. Pancreas: Unremarkable, no focal lesions. Spleen: Unremarkable. Adrenals: Unremarkable. Kidneys and ureters: Unremarkable. Bladder: Unremarkable. Reproductive organs: Unremarkable. Bowel: Diverticulosis is seen without evidence of diverticulitis. The appendix is not well seen however no urinary signs of appendicitis are seen. Lymph nodes Retroperitoneal: Unremarkable. Pelvic: Unremarkable. Mesenteric: Unremarkable. Peritoneum: Normal. Vessels: Atherosclerotic calcifications are seen. Abdominal wall: A fat-containing umbilical hernia is seen. Bones: Degenerative changes in the visualized spine. IMPRESSION: No acute abnormalities to explain lower abdominal pain. In particular no evidence of diverticulitis or appendicitis. ACT 112: Negative or not required by law. Electronically signed by: Andrea Paulino M.D. 01/17/2023 1:53 PM Discharge Plan Visit Data Chief Complaint: Weakness Stated Complaint: CHILLS, WEAKNESS ED Provider: Malik Royal Discharge Problem: Febrile illness, acute, Abdominal pain, lower, Acute lactic acidosis, Acute hypotension Patient Disposition: Admitted As Inpatient Discharge Instructions Interventions: ED Discharge Assessment Last Done: 01/17/23 19:26
--- NOTE | 2023-01-17 13:55 | CT Scan Report ---
CT abd pelvis IV con only CLINICAL HISTORY: lower abd pain, fever TECHNIQUE: Helical axial images of the abdomen and pelvis were obtained and displayed. Automated dose lowering techniques and/or adjustment according to patient size were utilized for this exam. This e xam was performed with intravenous contrast. CT DOSE: 750.48 mGy.cm COMPARISON: Comparison is made to CT abdomen pelvis 06/07/2006 FINDINGS: Lower chest: No acute abnormality. Liver: Unremarkable. No focal lesions are seen. Gallbladder and biliary tree: No calcified gallstones. Normal caliber wall. No intra- or extrahepatic biliary ductal dilation. Pancreas: Unremarkable, no focal lesions. Spleen: Unremarkable. Adrenals: Unremarkable. Kidneys and ureters: Unremarkable. Bladder: Unremarkable. Reproductive organs: Unremarkable. Bowel: Diverticulosis is seen without evidence of diverticulitis. The appendix is not well seen howev er no urinary signs of appendicitis are seen. Lymph nodes Retroperitoneal: Unremarkable. Pelvic: Unremarkable. Mesenteric: Unremarkable. Peritoneum: Normal. Vessels: Atherosclerotic calcifications are seen. Abdominal wall: A fat-containing umbilical hernia is seen. Bones: Degenerative changes in the visualized spine. IMPRESSION: No acute abnormalities to explain lower abdominal pain. In particular no evidence of diverticulitis o r appendicitis. ACT 112: Negative or not required by law. Electronically signed by: Andrea Paulino M.D. 01/17/2023 1:53 PM
[2023-01-17] MEDS ORDERED: SODIUM CHLORIDE 0.9% 1000ML 1,000 ML IV ONE (13:57)
[2023-01-17 15:56] LABS: Appearance Urine Clear (Clear); Bacteria Urine Automated Negative (Negative); Bilirubin Urine Negative (Negative); Blood Urine Trace (Negative); Color Urine Yellow; Glucose Urine UA Negative (Negative); Ketones Urine Negative (Negative); Leukocyte Esterase Urine Negative (Negative); Nitrite Urine Negative (Negative); Protein Urine 1+ (Negative); RBC Urine Automated 0-4 /hpf (0-4); Specific Gravity Urine 1.033 (1.000-1.030); Urobilinogen Urine Negative (Negative); pH Urine 6.5 (4.5-7.5)
[2023-01-17] MEDS ORDERED: cefTRIAXone SODIUM 2,000 MG/70 ML BAG IV STA (16:15)
[2023-01-17] MEDS ORDERED: DOXYCYCLINE HYCLATE 100 MG in DEXTROSE 5% 100 ML IV STA (16:20)
[2023-01-17] MEDS ORDERED: ACETAMINOPHEN 500 MG TAB PO STA (17:11)
--- NOTE | 2023-01-17 18:01 | History & Physical Report ---
Date of Service January 17, 2023 Assessment & Plan (1) Fever, unknown origin: Plan: -Admit to med/tele -Currently stable -At this time the etiology of the patient's fever and general malaise is unknown, her differential is broad due to her hx of PMR/Seronegative Polyar thritis and current immunosuppressive state -No leukocytosis, negative procal, no sign of infection on CXR or CT of the abd/pelvis, no sing of skin infection, no symptoms or signs to suggest meningit is, lyme screen negative -Blood cultures, babesia/phagocytophilum screens are in process -ESR is elevated at 46 with CRP elevated at 5.77 -The patient's Lead C Developer has been working on titrating her prednisone down, was on 4 mg, currently on 0.5 mg daily, could possibly having a flare of her PMR -Initial lactate was 2.5, down to 1.4 after IV fluids in the ED -S/P 1500 mL NSS, Ceftriaxone, and doxycycline in the ED -For now will hold further abx as I am not convinced she has a bacterial infection at this time -Do not think she is having adrenal insufficiency as she has been hemodynamically stable, with stable electrolytes, no abd pain, and stable glucose -Will obtain full respiratory biofire as she has a decreased lymphocyte count today -Follow blood cultures and the rest of her infectious workup -SQ lovenox for DVT PPX -HH diet -AM CBC, CMP, Mag, PT/INR (2) Polymyalgia rheumatica: Plan: -On weekly Methotrexate and daily prednisone -Last dose of methotrexate was 01/11 -Had her am dose of prednisone today -Will continue her prednisone for now as she is on a small dose and has been stable (3) Hypercholesterolemia: Plan: -Continue atorvastatin (4) GERD (gastroesophageal reflux disease): Plan: -Conitnue PPI Plan The patient was discussed with Dr. Guan at the time of the admission History of Present Illness Chief Complaint: Chills, rigors, lower abd pain Primary Care Provider: Scarlet Guerrier MD Mrs. Thompson is a 77 year old female with a PMH significant for seronegative polyarthritis, PMR on on prednisone and methotrexate, hyperlipidemia, and GERD who presented to the [facility] ED on 01/17 for a week of chills and lower abdominal. In the ED the patient was initially stable but was found to be febrile at 38C during her evaluation. Labs were significant for an ESR of 46, lymphocytosis of 0.80, initial lactate of 2.5, UA without signs of infection, lyme IgG/IgM negative, and covid 19 negative. Chest xray was read as "No acute chest disease.". CT of the abd/pelvis with IV con was read as "No acute abnormalities to explain lower abdominal pain. In particular no evidence of diverticulitis or appendicitis.". Prior to admission the patient was given a total of 1.5L NSS, 2gm Ceftriaxone, a dose of IV doxycycline. At the time of the exam the patient was lying in bed, she appears anxious but in no acute distress. History was obtained from the patient and her who is bedside. They state that she had been in her normal state of health until last Wednesday (01/10). She was in [place] when she started to develop bloating/gas in her lower abdomen. These symptoms persisted over the next few days so she started to take Gas-X, which has relieved her symptoms. She states that over the past week she has also been experiencing generalized body aches and chills. She states that she took her temperature last night and it was 100.7F. She is still on one weekly methotrexate with her last dose on 01/11. She follows with [facility] who has been weaning her off Prednisone, she is currently taking 0.5 mg PO daily. She has chronic BL shoulder pain from arthritis. She denies recent changes in vision, hearing, taste, and smell, neck stiffness, chest pain, SOB, cough, new abd pain, dysuria hematuria, melena, diarrhea, LE swelling/pain, and recent trauma. Of note, she had half an orange prior to coming to the ED, she states that she had one episode of nausea with an episode of non-bilious emesis while in the ED. She denies any recent travel or sick contacts and states that she doesn't have a history of recurrent fevers with her Rheumatologic disease. We discussed code status, she wishes to be a conditional code. In the event of cardiac arrest she does NOT want CPR of defibrillation. She would want a trial of intubation in the event of respiratory failure. Please refer to Dr. Guan's attestation for any changes to the treatment plan Allergies Allergy/AdvReac Type Severity Reaction Status Date / Time grass pollen Allergy Unknown NASAL Verified 09/30/22 11:18 CONGESTION, SNEEZING house dust mite Allergy Unknown NASAL Verified 09/30/22 11:18 CONGESTION, SNEEZING No Known Drug Allergies Allergy Unknown . Verified 09/30/22 11:18 Home Medications Medication Instructions Recorded Confirmed Type ofzfkootdhdy-swvhalqh-youtwa tablet 1 tab PO DAILY 12/22/18 01/17/23 History amoxicillin 500 mg capsule 2,000 mg PO UD PRN PRE DENTAL #4 04/18/19 01/17/23 History caps aspirin 81 mg tablet,delayed 81 mg PO Q2D 06/29/19 01/17/23 History release biotin 5,000 mcg disintegrating 5,000 mcg PO DAILY 05/15/20 01/17/23 History tablet coenzyme Q10 100 mg capsule 200 mg PO DAILY 05/15/20 01/17/23 History (CoQ-10) montelukast 10 mg tablet 10 mg PO QAM #90 tabs 08/31/22 01/17/23 Rx atorvastatin 20 mg tablet 20 mg PO QPM hypercholesterolemia 12/16/22 01/17/23 Rx #90 tabs cholecalciferol (vitamin D3) 25 25 mcg PO Q2D 01/17/23 01/17/23 History mcg (1,000 unit) tablet (Vitamin D3) folic acid 1 mg tablet 2 mg PO QAM 01/17/23 01/17/23 History methotrexate sodium 2.5 mg tablet 15 mg PO WK 01/17/23 01/17/23 History omeprazole 20 mg capsule,delayed 20 mg PO QAM 01/17/23 01/17/23 History release prednisone 1 mg tablet 0.5 mg PO DAILY 01/17/23 01/17/23 History 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 Hypercholesterolemia Nausea and vomiting after administration of anesthetic agent NAUSEA Polymyalgia rheumatica Restless legs syndrome PT REPORTS HX - NOT CURRENT PROBLEM Surgical History (Updated 09/30/22 @ 11:44 by Pat Garcia MD) History of foot surgery LEFT GREAT TOE History of hysteroscopy History of right cataract extraction History of total knee arthroplasty LEFT 2013 S/P colonoscopy HX S/P dilation and curettage HX S/P laparoscopy HX S/P MIGUEL-BSO (total abdominal hysterectomy and bilateral salpingo-oophorectomy) 2001 due to adenocarcinoma on D&C, final path showed no residual adenocarcinoma S/P tubal ligation S/P wisdom tooth extraction HX S/P wrist surgery Family History (Updated 09/30/22 @ 11:45 by Pat Garcia MD) Sister Breast cancer Family history of diabetes mellitus Father Heart disease Myocardial infarction Mother Osteoporosis Brother Brain bleed Bladder cancer Sister Lung cancer Denies family history of Ovarian cancer Prostate cancer Colorectal cancer Social History (Updated 09/30/22 @ 11:20 by Taylor Campos LPN) Smoking Status: Never smoker Second Hand Exposure: No; Do You Dip or Chew Tobacco: No; Tobacco Cessation Education Requested by Patient: No Hx Alcohol Use: Yes Alcohol type: wine Alcohol Intake Frequency: 4 or More x per/Week Hx Substance Use: No Preferred Language: Yi Communication Ability: Effective Visual Impairment: No Limitations Hearing Ability: Hard of Hearing Seat Installer Required: No Beliefs That Will Affect Care: None marital status: Current Living Situation: Spouse Current Living Situation Comment: Home with spoue current occupational status: retired How many Children do You have: 2 Other Information That Helps Us Care for You: No Feels Safe at Home: Yes Safety Concerns: Feels Safe At This Time Childhood Exposure to Second-Hand Smoke: Yes Diet: regular Diet Comment: regular caffeine: Yes during the past year weight has: increased > 10 lbs Dental Care, Regularly: Yes Physical Activity Frequency: Daily Seatbelt Use: always Sunscreen Use: Yes Assistive Devices: None Physical Exam Physical Exam: Physical Exam: General: In mild distress due to anxiety, stated age, well-nourished, good hygiene, non-toxic appearing HEENT: Normocephalic, atraumatic, no scleral icterus, pupils around round, symmetrical, and reactive to light, moist mucus membranes, trachea midline, no thyromegaly Chest/Pulm: No respiratory distress, symmetrical chest expansion, clear breath sounds throughout Cardiac: RRR, no murmurs noted Abdomen: Negative for ascites and bruising, normoactive bowel sounds, soft, non-tender to palpation throughout Musculoskeletal: No tenderness to palpation of the cervical/thoracic/lumbar spine, able to flex chin to chest without neck pain/stiffness, Symmetrical and without signs of acute trauma, upper and lower extremities with full ROM, no atrophy, spasticity, or flaccidity, no signs of erythema or swelling at the site of her previous left knee replacement Extremities: Radial, dorsalis pedis, and posterior tibial pulses are intact and symmetrical, no edema noted in the BL LE's Skin: Warm, dry, no rashes , lesions, or scars noted Neuro: Alert and oriented to person, place, month, year, and president, no focal defects, no tremors noted Psych: Slightly anxious due to general malaise, calm and cooperative during the exam Results & Data Results & Data Vital Signs (Past 12 Hours) Vital Signs Temp Pulse Pulse Resp BP BP Pulse Ox 01/17/23 17:00 38 C H 82 18 136/71 96 01/17/23 15:49 81 01/17/23 14:08 79 19 97 01/17/23 13:00 146/68 H 01/17/23 13:00 81 14 96 01/17/23 12:30 133/65 01/17/23 12:30 72 15 96 01/17/23 12:00 128/59 L 01/17/23 12:00 73 19 97 01/17/23 11:57 133/78 01/17/23 11:57 79 19 98 01/17/23 11:45 01/17/23 11:47 73 01/17/23 11:12 36.7 C 71 20 97/56 L 100 O2 Del Method 01/17/23 17:00 Room Air 01/17/23 15:49 01/17/23 14:08 01/17/23 13:00 01/17/23 13:00 01/17/23 12:30 01/17/23 12:30 01/17/23 12:00 01/17/23 12:00 01/17/23 11:57 01/17/23 11:57 01/17/23 11:45 Room Air 01/17/23 11:47 01/17/23 11:12 Room Air Laboratory Results Abnormal lab results 01/17/23 01/17/23 01/17/23 Range/Units 11:55 11:55 11:55 RBC 3.73 L (4.20-5.40) M/uL Hct 35.3 L (37.0-47.0) % RDW Std Deviation 47.7 H (36.4-46.3) fL MPV 9.1 L (9.4-12.4) fL Lymph # (Auto) 0.80 L (1.2-3.4) K/uL ESR (0-30) mm/hr Sodium 135 L (136-145) mmol/L Glucose 116 H (70-99(Fasting)) mg/dl Lactate 2.5 H* (0.4-2.0) mmol/L Ur Specific [place] (1.000-1.030) Urine Protein (Negative) Urine Blood (Negative) U Epithel Cells (Auto) (0-5) /lpf 01/17/23 01/17/23 Range/Units 12:19 15:34 RBC (4.20-5.40) M/uL Hct (37.0-47.0) % RDW Std Deviation (36.4-46.3) fL MPV (9.4-12.4) fL Lymph # (Auto) (1.2-3.4) K/uL ESR 46 H (0-30) mm/hr Sodium (136-145) mmol/L Glucose (70-99(Fasting)) mg/dl Lactate (0.4-2.0) mmol/L Ur Specific [place] 1.033 H (1.000-1.030) Urine Protein 1+ H (Negative) Urine Blood Trace H (Negative) U Epithel Cells (Auto) 10-20 H (0-5) /lpf Diagnostic Findings Chest X-Ray 01/17/23 11:23 XR chest 1V portable CLINICAL HISTORY: weakness TECHNIQUE: Single frontal radiograph of the chest was obtained. Comparison: Comparison is made to chest radiograph 04/06/2014 FINDINGS: No lines and tubes are seen. Calcified aortic knob is seen. The lungs are clear. No evidence of pleural effusion or pneumothorax. IMPRESSION: No acute chest disease. ACT 112: Negative or not required by law. Electronically signed by: Andrea Paulino M.D. 01/17/2023 11:46 AM Abdomen/Pelvis CT 01/17/23 12:00 CT abd pelvis IV con only CLINICAL HISTORY: lower abd pain, fever TECHNIQUE: Helical axial images of the abdomen and pelvis were obtained and displayed. Automated dose lowering techniques and/or adjustment according to patient size were utilized for this exam. This exam was performed with intravenous contrast. CT DOSE: 750.48 mGy.cm COMPARISON: Comparison is made to CT abdomen pelvis 06/07/2006 FINDINGS: Lower chest: No acute abnormality. Liver: Unremarkable. No focal lesions are seen. Gallbladder and biliary tree: No calcified gallstones. Normal caliber wall. No intra- or extrahepatic biliary ductal dilation. Pancreas: Unremarkable, no focal lesions. Spleen: Unremarkable. Adrenals: Unremarkable. Kidneys and ureters: Unremarkable. Bladder: Unremarkable. Reproductive organs: Unremarkable. Bowel: Diverticulosis is seen without evidence of diverticulitis. The appendix is not well seen however no urinary signs of appendicitis are seen. Lymph nodes Retroperitoneal: Unremarkable. Pelvic: Unremarkable. Mesenteric: Unremarkable. Peritoneum: Normal. Vessels: Atherosclerotic calcifications are seen. Abdominal wall: A fat-containing umbilical hernia is seen. Bones: Degenerative changes in the visualized spine. IMPRESSION: No acute abnormalities to explain lower abdominal pain. In particular no evidence of diverticulitis or appendicitis. ACT 112: Negative or not required by law. Electronically signed by: Andrea Paulino M.D. 01/17/2023 1:53 PM ECG Additional Comments: Normal sinus rhythm Normal ECG When compared with ECG of 03-SEP-2020 15:41, ST no longer depressed in Inferior leads Confirmed by Eber Jeter ([id number]) on 01/17/2023 12:43:39 PM Code Status & VTE Plan Code Status Conditional code; No CPR or defibrillation in the event of cardiac arrest. Would want trial of intubation if respiratory failure VTE Prophylaxis Plan VTE Prophylaxis will be ordered: Yes Supervising Physician Co-Signing Physician Notes I personally saw and examined the patient. I verified all lundberg points and agree with Raymond Garcia PA-C with the following exceptions and/or additions: 77 year old female presents to the ER with history of bloating and abdominal pain starting 1 week ago, helped with gas-ex which resolved on . Associated fever, chills, myalgias initially worse in the beginning, relief around /Wednesday, now getting worse again. Associated generalized frontal headache, not pulsating, no worse on palpation over temporal areas. No vision changes. Weakness is generalized myalgias unlike her prior PMR which was more stiffness. O/E A&Ox3, HS RRR, no murmurs, Chest CTAB, Abdo SNT, no CVA tenderness, CN2-> 12 intact, no pronator drift, extremity weakness or change in sensation A/P Unclear cause of her symptoms on admission but she is immunosuppressed having high fevers after 1 week of an illness warranting inpatient observation for further workup. Fever - possible viral illness although she is far out from her initial symptoms to still be having fevers, possibly two different viral illnesses although this goes against Occams razor and her symptoms other than the abdominal pain are similar. With negative initial lyme testing (1 week after onset of symptoms) I would favor holding off further treatment as no known tick bite or rash therefore no specific symptoms of this. Main reason for observation is she is immunosuppressed on methotrexate therefore perhaps something more specific will present itself over the coming days or if ongoing fevers would favor empiric treatment for lyme disease with repeat antibody testing in 2 weeks. She does not appear meningitic and would hold off LP currently. A different autoimmune condition remains possible but infection is the diagnosis of exclusion. Myalgias, fatigue - possible PMR but this does not explain her fever (although this is a one off measurement in the ER she was also have rigors therefore assumed to be a true fever). Fever can occur in GCA but she is having an very atypical headache for this, no vision changes. I would favor a watch and wait approach rather than increasing her steroids at this stage in case infection is present. PG Care Time/CCT Total # of Minutes Spent Total Time Spent with Patient: Total time spent is greater than 50% in coordination of care (as documented) at patient's floor/unit and/or counseling patient: C[place] [address] INT INP/OBS CARE 3/75MIN Patient Type Established Medical Decision Making High Complexity Diagnoses Fever, unknown origin R50.9 Polymyalgia rheumatica M35.3 Hypercholesterolemia E78.00 GERD (gastroesophageal reflux disease) K21.9
[2023-01-17 18:36] LABS: C Reactive Protein 5.77 mg/dl (0-0.5)
[2023-01-17 20:27] LABS: Adenovirus PCR Not Detected (NotDetected); Bordetella parapertussis PCR Not Detected (NotDetected); Bordetella pertussis PCR Not Detected (NotDetected); Chlamydia pneumoniae PCR Not Detected (NotDetected); Coronavirus 229E PCR Not Detected (NotDetected); Coronavirus CoV-2 (COVID19)PCR Not Detected (NotDetected); Coronavirus HKU1 PCR Not Detected (NotDetected); Coronavirus NL63 PCR Not Detected (NotDetected); Coronavirus OC43PCR Not Detected (NotDetected); Human Metapneumovirus PCR Not Detected (NotDetected); Influenza A PCR Not Detected (NotDetected); Influenza B PCR Not Detected (NotDetected); Mycoplasma pneumoniae PCR Not Detected (NotDetected); Parainfluenza Virus 1 PCR Not Detected (NotDetected); Parainfluenza Virus 2 PCR Not Detected (NotDetected); Parainfluenza Virus 3 PCR Not Detected (NotDetected); Parainfluenza Virus 4 PCR Not Detected (NotDetected); Respiratory Syncytial VirusPCR Not Detected (NotDetected); Rhinovirus/Enterovirus PCR Not Detected (NotDetected)
[2023-01-17] MEDS: ATORVASTATIN 20 MG TAB PO SCH (21:00)
[2023-01-17] MEDS: ENOXAPARIN INJ 40 MG/0.4 ML SYR SQ SCH (21:25)
[2023-01-18] MEDS: ACETAMINOPHEN 325 MG TAB PO PRN ×2 (04:12→11:32)
--- NOTE | 2023-01-18 08:07 | Hospitalist Progress Note ---
Date of Service January 18, 2023 Assessment & Plan (1) Fever, unknown origin: Plan: Obdulia is a 77F with history of GERD, HLD, PMR, vertigo, seronegative polyarthritis, osteopenia, hemorrhoids, and hyperhomocystinemia who presents for evaluation of 7-10 days of waxin/waning fevers at home with associated lower abdominal pain and chills. Patient was admitted for ongoing evaluation of fever of unknown origin. Fever (unknown origin) - Vitals stable on admission, patient afebrile since 01/18 - Evaluation: * CXR - unremarkable * CTAP - unremarkable * ESR/CRP - elevated (PMR at baseline, expect ESR elevation) * Lyme - negative * Anaplasma/Babesia - preliminary, negative * CBC/CMP - unremarkable on admission - Patient down-titrating Prednisone, unlikely Rheumatologic source given lack of large joint pain recurrence with steroid taper * Patient notes baseline joint aching, which is largely unchanged * ESR likely remains elevated in setting of PMR - Abx given in ER for suspected infectious origin, also unlikely at this time * Bacterial origin unlikely - procalcitonin negative * Viral panel negative - does not exclude viral origin * Blood cultures - NGTD - Of note, patient's Hgb/WBC/Plt count decreased 01/18, while AST violet * Could be rehydration (patient s/p 1500 mL NSS in ED) * Remains concerning for presentation of tick borne illness, follow AM labs Polymyalgia Rheumatica (PMR) - Ongoing weekly MTX and daily Prednisone 0.5 mg * Last dose MTX 01/11, held inpatient during evaluation * Continue Prednisone Hypercholesterolemia - Continue Atorvastatin GERD - Continue PPI FEN: Heart Health, No IVF Code status: Conditional DVT ppx: Lovenox Isolation: None Dispo:Med/Tele (2) Polymyalgia rheumatica: (3) Hypercholesterolemia: Plan: (4) GERD (gastroesophageal reflux disease): Admission and Anticipated Discharge Date Admission Date: January 17, 2023 Supervising Physician Co-Signing Physician Notes I personally examined the patient and verified all lundberg points of history and exam, discussed case, and agree with decision making with Dr Arvin orlando ~102 overnight. no significant PMR symptoms but just overall malaise. belly feels better vitals noted nad heent nc at mmm breathing unlabored no accessory muscles febrile syndrome - ?tick borne vs viral. less likely rheumatologic. follow. otherwise as above DVT proph - lovenox Subjective 01/18: Patient sleeping in bed upon arrival, she noted ongoing fatigue, but was otherwise asymptomatic. Patient denies chills, nausea, emesis, abdominal pain, diarrhea or constipation. She notes that prior to presentation she was experiencing mild lower abdominal pain and generalized fatigue, but no additional GI, , or upper respiratory symptoms. Patient notes that she has been tapering down her chronic steroid dose (for PMR), but during this taper she has not experienced any increased joint pain (hip/shoulder) or discomfort. Patient notes that her fevers have been intermittent (but overall rising) over the last 7-10 days, but have largely not exceeded 100.4F. Patient spends a significant amount of time outdoors, and states that she would not be suprised if she had been bitten by a tick. Physical Exam Physical Exam: Gen: NAD, interactive, fatigued, non-toxic Neuro: AO x 3, no focal neurologic deficits HEENT: NCAT, supple, no LAD Resp:Non-labored, no wheezing/rhonchi/rales, CTAB CV:RRR, normal S1/S2, no M/R/G Abd: Soft, non-distended, no TTP, normoactive bowels, no masses Extr: 2+ dp bilaterally, no edema, no hip or shoulder TTP Skin: No rashes lesions or erythema Results & Data Results & Data Vital Signs (Past 12 Hours) Vital Signs Temp Pulse Pulse Pulse Resp BP Pulse Ox 01/18/23 07:50 37.0 C 70 18 113/67 97 01/18/23 07:18 74 01/18/23 04:16 39.5 C H 91 H 18 145/80 H 94 01/17/23 22:28 89 01/17/23 21:05 74 01/17/23 23:57 38.4 C H 99 H 18 133/60 96 01/17/23 21:04 36.8 C 68 16 131/74 95 01/17/23 20:43 36.8 C 68 16 131/74 95 O2 Del Method 01/18/23 07:50 Room Air 01/18/23 07:18 01/18/23 04:16 Room Air 01/17/23 22:28 01/17/23 21:05 01/17/23 23:57 Room Air 01/17/23 21:04 Room Air 01/17/23 20:43 Room Air Resident Activity Tracking Resident Involvement: Resident Care Provided Care Provided: Adult Hospital Medicine
[2023-01-18] MEDS: ASPIRIN 81 MG ECTAB PO SCH (08:12)
[2023-01-18] MEDS: predniSONE 1 MG TAB PO SCH (08:13)
[2023-01-18] MEDS: PANTOprazole 40 MG TAB PO SCH (08:13)
[2023-01-18] MEDS: FOLIC ACID 1 MG TAB PO SCH (08:13)
[2023-01-18 08:34] LABS: Basophils # (auto) 0.02 K/uL (0-0.2); Basophils % (auto) 0.2 %; Hematocrit (blood only) 30.6 % (37.0-47.0); Hemoglobin 10.7 g/dl (12.0-16.0); Immature Granulocytes # (auto) 0.07 K/uL (0.01-0.20); Immature Granulocytes % (auto) 0.9 %; Lymphocytes # (auto) 0.75 K/uL (1.2-3.4); Lymphocytes % (auto) 9.1 %; Mean Corpuscular Hemoglobin 32.4 pg (25.0-34.0); Mean Corpuscular Volume 92.7 fL (80.0-100.0); Mean Platelet Volume 9.3 fL (9.4-12.4); Monocytes # (auto) 0.41 K/uL (0.11-0.59); Neutrophils # (auto) 6.97 K/uL (1.40-6.50); Neutrophils % (auto) 84.8 %; Platelet Count 165 K/uL (130-400); RDW Coefficient of Variation 13.8 % (11.5-14.5); RDW Standard Deviation 46.8 fL (36.4-46.3); White Blood Count 8.22 K/ul (4.8-10.8)
[2023-01-18 08:54] LABS: Albumin Globulin Ratio 1.3 (0.9-2); Albumin Level 3.7 gm/dl (3.4-5.0); BUN Creatinine Ratio 17.7 (10-20); Bilirubin,Total 0.5 mg/dl (0.2-1.0); Calcium 8.9 mg/dl (8.6-10.3); Creatinine Clr Calc Pharmacy 71.1 ml/min; Est GFR (African American) 101.5 ml/min; Est GFR (Non-African American) 87.6 ml/min; Globulin 2.9 gm/dl (2.5-4.0); Magnesium 1.7 mg/dl (1.7-2.4); Potassium 3.2 mmol/L (3.5-5.1); Total Protein 6.6 gm/dl (6.0-8.3)
[2023-01-18] MEDS ORDERED: POTASSIUM CHLORIDE CRTAB 20 MEQ TABCR PO STA (08:55)
--- NOTE | 2023-01-18 19:13 | Billing Data ---
Date of Service January 18, 2023 Coding Level of Care Code 16906 SUB INP/OBS CARE MIN
[2023-01-18] MEDS: ATORVASTATIN 20 MG TAB PO SCH (20:08)
[2023-01-18] MEDS: ENOXAPARIN INJ 40 MG/0.4 ML SYR SQ SCH (20:12)
[2023-01-19] MEDS: ACETAMINOPHEN 325 MG TAB PO PRN (02:30)
--- NOTE | 2023-01-19 07:09 | Hospitalist Progress Note ---
Date of Service January 19, 2023 Assessment & Plan (1) Fever, unknown origin: Plan: Obdulia is a 77F with history of GERD, HLD, PMR, vertigo, seronegative polyarthritis, osteopenia, hemorrhoids, and hyperhomocystinemia who presents for evaluation of 7-10 days of waxin/waning fevers at home with associated lower abdominal pain and chills. Patient was admitted for ongoing evaluation of fever of unknown origin. Fever (unknown origin) - Vitals stable on admission, patient afebrile since 01/18 - Evaluation: * CXR - unremarkable * CTAP - unremarkable * ESR/CRP - elevated (PMR at baseline, expect ESR elevation) * Lyme - negative * Anaplasma/Babesia - preliminary, negative * CBC/CMP - unremarkable on admission - Patient down-titrating Prednisone, unlikely Rheumatologic source given lack of large joint pain recurrence with steroid taper * Patient notes baseline joint aching, which is largely unchanged * ESR likely remains elevated in setting of PMR - Abx given in ER for suspected infectious origin, also unlikely at this time * Bacterial origin unlikely - procalcitonin negative * Viral panel negative - does not exclude viral origin * Blood cultures - NGTD - Of note, patient's Hgb/WBC/Plt count decreased 01/18, while AST violet * Could be rehydration (patient s/p 1500 mL NSS in ED) * Remains concerning for presentation of tick borne illness, follow AM labs Polymyalgia Rheumatica (PMR) - Ongoing weekly MTX and daily Prednisone 0.5 mg * Last dose MTX 01/11, held inpatient during evaluation * Continue Prednisone Hypercholesterolemia - Continue Atorvastatin GERD - Continue PPI FEN: Heart Health, No IVF Code status: Conditional DVT ppx: Lovenox Isolation: None Dispo:Med/Tele (2) Polymyalgia rheumatica: (3) Hypercholesterolemia: Plan: (4) GERD (gastroesophageal reflux disease): Admission and Anticipated Discharge Date Admission Date: January 17, 2023 Subjective 01/18: Patient sleeping in bed upon arrival, she noted ongoing fatigue, but was otherwise asymptomatic. Patient denies chills, nausea, emesis, abdominal pain, diarrhea or constipation. She notes that prior to presentation she was experiencing mild lower abdominal pain and generalized fatigue, but no additional GI, , or upper respiratory symptoms. Patient notes that she has been tapering down her chronic steroid dose (for PMR), but during this taper she has not experienced any increased joint pain (hip/shoulder) or discomfort. Patient notes that her fevers have been intermittent (but overall rising) over the last 7-10 days, but have largely not exceeded 100.4F. Patient spends a significant amount of time outdoors, and states that she would not be suprised if she had been bitten by a tick. 01/19: Physical Exam Physical Exam: Gen: NAD, interactive, fatigued, non-toxic Neuro: AO x 3, no focal neurologic deficits HEENT: NCAT, supple, no LAD Resp:Non-labored, no wheezing/rhonchi/rales, CTAB CV:RRR, normal S1/S2, no M/R/G Abd: Soft, non-distended, no TTP, normoactive bowels, no masses Extr: 2+ dp bilaterally, no edema, no hip or shoulder TTP Skin: No rashes lesions or erythema Results & Data Results & Data Vital Signs (Past 12 Hours) Vital Signs Temp Pulse Pulse Resp BP BP Pulse Ox 01/19/23 03:56 37.0 C 66 18 115/61 96 01/18/23 22:11 88 01/18/23 23:29 38.3 C H 84 18 120/66 95 01/18/23 19:57 37.9 C H 75 18 124/65 97 O2 Del Method 01/19/23 03:56 Room Air 01/18/23 22:11 01/18/23 23:29 Room Air 01/18/23 19:57 Room Air Resident Activity Tracking Resident Involvement: Resident Care Provided Care Provided: Adult Hospital Medicine
[2023-01-19 07:21] LABS: Hematocrit (blood only) 31.6 % (37.0-47.0); Hemoglobin 10.8 g/dl (12.0-16.0); Mean Corpuscular Hemoglobin 32.3 pg (25.0-34.0); Mean Corpuscular Hgb Conc 34.2 g/dL (32.0-36.0); Mean Corpuscular Volume 94.6 fL (80.0-100.0); Mean Platelet Volume 9.2 fL (9.4-12.4); Platelet Count 174 K/uL (130-400); RDW Coefficient of Variation 13.7 % (11.5-14.5); RDW Standard Deviation 47.2 fL (36.4-46.3); Red Blood Count 3.34 M/uL (4.20-5.40); White Blood Count 5.35 K/ul (4.8-10.8)
[2023-01-19 07:40] LABS: Albumin Globulin Ratio 1.2 (0.9-2); Albumin Level 3.7 gm/dl (3.4-5.0); BUN Creatinine Ratio 14.3 (10-20); Bilirubin,Total 0.5 mg/dl (0.2-1.0); C Reactive Protein 17.32 mg/dl (0-0.5); Calcium 9.5 mg/dl (8.6-10.3); Creatinine Clr Calc Pharmacy 70.5 ml/min; Est GFR (Non-African American) 87.1 ml/min; Potassium 3.7 mmol/L (3.5-5.1); Total Protein 6.7 gm/dl (6.0-8.3)
[2023-01-19 07:56] LABS: Basophils # (auto) 0.02 K/uL (0-0.2); Basophils % (auto) 0.4 %; Eosinophils # (auto) 0.01 K/uL (0-0.50); Eosinophils % (auto) 0.2 %; Immature Granulocytes # (auto) 0.03 K/uL (0.01-0.20); Immature Granulocytes % (auto) 0.6 %; Lymphocytes # (auto) 1.55 K/uL (1.2-3.4); Monocytes # (auto) 0.68 K/uL (0.11-0.59); Monocytes % (auto) 12.7 %; Neutrophils # (auto) 3.06 K/uL (1.40-6.50); Neutrophils % (auto) 57.1 %
[2023-01-19] MEDS: predniSONE 1 MG TAB PO SCH (08:36)
[2023-01-19] MEDS: FOLIC ACID 1 MG TAB PO SCH (08:37)
[2023-01-19] MEDS: PANTOprazole 40 MG TAB PO SCH (08:37)
[2023-01-19] MEDS: ASPIRIN 81 MG ECTAB PO SCH (08:37)
[2023-01-19] MEDS ORDERED: DOXYCYCLINE HYCLATE 100 MG CAP PO SCH (11:30)
--- NOTE | 2023-01-19 12:15 | Discharge Summary ---
Date of Service January 19, 2023 Admission HPI Per Admitting Provider Mrs. Thompson is a 77 year old female with a PMH significant for seronegative polyarthritis, PMR on on prednisone and methotrexate, hyperlipidemia, and GERD who presented to the [facility] ED on 01/17 for a week of chills and lower abdominal. In the ED the patient was initially stable but was found to be febrile at 38C during her evaluation. Labs were significant for an ESR of 46, lymphocytosis of 0.80, initial lactate of 2.5, UA without signs of infection, lyme IgG/IgM negative, and covid 19 negative. Chest xray was read as "No acute chest disease.". CT of the abd/pelvis with IV con was read as "No acute abnormalities to explain lower abdominal pain. In particular no evidence of diverticulitis or appendicitis.". Prior to admission the patient was given a total of 1.5L NSS, 2gm Ceftriaxone, a dose of IV doxycycline. At the time of the exam the patient was lying in bed, she appears anxious but in no acute distress. History was obtained from the patient and her who is bedside. They state that she had been in her normal state of health until last Wednesday (01/10). She was in [facility] when she started to develop bloating/gas in her lower abdomen. These symptoms persisted over the next few days so she started to take Gas-X, which has relieved her symptoms. She states that over the past week she has also been experiencing generalized body aches and chills. She states that she took her temperature last night and it was 100.7F. She is still on one weekly methotrexate with her last dose on 01/11. She follows with [facility] who has been weaning her off Prednisone, she is currently taking 0.5 mg PO daily. She has chronic BL shoulder pain from arthritis. She denies recent changes in vision, hearing, taste, and smell, neck stiffness, chest pain, SOB, cough, new abd pain, dysuria hematuria, melena, diarrhea, LE swelling/pain, and recent trauma. Of note, she had half an orange prior to coming to the ED, she states that she had one episode of nausea with an episode of non-bilious emesis while in the ED. She denies any recent travel or sick contacts and states that she doesn't have a history of recurrent fevers with her Rheumatologic disease. We discussed code status, she wishes to be a conditional code. In the event of cardiac arrest she does NOT want CPR of defibrillation. She would want a trial of intubation in the event of respiratory failure. Please refer to Dr. Guan's attestation for any changes to the treatment plan Admission Exam Per Admitting Provider Physical Exam: General:In mild distress due to anxiety, stated age, well-nourished, good hygiene, non-toxic appearing HEENT:Normocephalic, atraumatic, no scleral icterus, pupils around round, symmetrical, and reactive to light, moist mucus membranes, trachea midline, no thyromegaly Chest/Pulm:No respiratory distress, symmetrical chest expansion, clear breath sounds throughout Cardiac:RRR, no murmurs noted Abdomen:Negative for ascites and bruising, normoactive bowel sounds, soft, non-tender to palpation throughout Musculoskeletal:No tenderness to palpation of the cervical/thoracic/lumbar spine, able to flex chin to chest without neck pain/stiffness, Symmetrical and without signs of acute trauma, upper and lower extremities with full ROM, no atrophy, spasticity, or flaccidity, no signs of erythema or swelling at the site of her previous left knee replacement Extremities:Radial, dorsalis pedis, and posterior tibial pulses are intact and symmetrical, no edema noted in the BL LE's Skin:Warm, dry, no rashes , lesions, or scars noted Neuro:Alert and oriented to person, place, month, year, and president, no focal defects, no tremors noted Psych:Slightly anxious due to general malaise, calm and cooperative during the exam Principal Diagnosis Fever, unknown origin Discharge Exam Gen: NAD, interactive, fatigued, non-toxic Neuro: AO x 3, no focal neurologic deficits HEENT: NCAT, supple, no LAD Resp:Non-labored, no wheezing/rhonchi/rales, CTAB CV:RRR, normal S1/S2, no M/R/G Abd: Soft, non-distended, no TTP, normoactive bowels, no masses Extr: 2+ dp bilaterally, no edema, no hip or shoulder TTP Skin: No rashes lesions or erythema Discharge Data Allergies Allergy/AdvReac Type Severity Reaction Status Date / Time grass pollen Allergy Unknown NASAL Verified 09/30/22 11:18 CONGESTION, SNEEZING house dust mite Allergy Unknown NASAL Verified 09/30/22 11:18 CONGESTION, SNEEZING No Known Drug Allergies Allergy Unknown . Verified 09/30/22 11:18 Consultations 01/17/23 17:53 ED Decision to Admit Stat Ordered Studies 01/17/23 12:00 CT Abd and Pelvis [CT abd pelvis IV con only] Stat Hospital Course (1) Fever, unknown origin: Obdulia is a 77F with a history of GERD, HLD, PMR, vertigo, seronegative polyarthritis, osteopenia, hemorrhoids, and hyperhomocystinemia who presents for evaluation of 7-10 days of waxing/waning fevers at home with associated lower abdominal pain and chills. Fever (unknown origin) - most likely due to tickborne infection Infectious vs Rheumatologic Infectious: Bacterial vs tickborne vs. viral. Bacterial etiology: unlikely due to negative procalcitonin, unremarkable CXR, unremarkable CTAB, no growth in blood cultures. Viral etiology: less likely due to negative viral panel and prolonged course, but cannot be ruled out. Tickborne etiology: High pre-test probability in this region, supported by mild elevation in AST (44). Of note, patient's Hgb/WBC/Plt count decreased 01/18, possibly due to rehydration, but remains concerning for presentation of tick borne illness. -Lyme negative. -Anaplasma/Babesia - preliminary negative. Rheumatologic: Patient's history of PMR along with recent titration down of prednisone possible source of her fever. Less likely due to higher fevers (max 39.5), higher CRP (17.3), and lack of recurrent PMR symptoms. Prednisone titrated from 4mg to .5mg 1wk prior, a relatively minor change at the end of a long titration course and would be unlikely to cause a flare. -At this time, do not recommend increasing dose of Prednisone. (2) Polymyalgia rheumatica: - Ongoing weekly MTX and daily Prednisone 0.5 mg * Last dose MTX 01/11, held inpatient during evaluation * Continue Prednisone .5mg (3) Hypercholesterolemia: - Continue Atorvastatin (4) GERD (gastroesophageal reflux disease): - Continue PPI Plan -Patient was discharged on a 21 day course of 100mg doxycycline starting 01/19 to treat their tick borne illness. -Follow up with PCP within the next week (Wednesday or Wednesday). -Recommend repeat labs including CBC, CMP, CRP -Follow-up on pending anaplasma/Babesia results. Total Time Total Time Spent Total Time Spent (In Minutes): <30 Discharge Plan Discharge Items Patient Disposition: Home - Self-Care Reason For Visit: FEVER OF UNKNOWN ORIGIN, IMMUNOCOMPROMISED Discharge Diagnosis: Fever of Unknown Origin Activity: Per Instructions section Non-emergency contact: Primary Care Provider Call non-emergency contact if: you have any medication questions and your symptoms worsen Follow-up/Referrals: Scarlet Guerrier MD [Primary Care Provider] - 01/26/23 10:20 am (hospital follow up appointment) Diet: Regular Addtl Attending Provider Instructions: You were admitted to the hospital for evaluation of fever and fatigue. After thorough evaluation, it was determined that the most likely cause of your fever was tick-borne illness. This was determined based on geographic location (endemic area) as well as an elevation in CRP level which was more consistent with infection than rheumatologic origin. Additional laboratory and diagnostic imaging were non-contributory. Given your history of PMR, close attention was paid to rheumatologic cause of your fever, at this time, given your lack of recurrent PMR symptoms, it was determined that your fever was unlikely to be rheumatalgic in nature. Because of this, it is not recommended to increase your dose of Prednisone at this time. As discussed inpatient, viral illnesses could present similarly, but the duration of your symptoms diminishes the likelihood of a viral illness. You were started on Doxycycline 100 mg to take by mouth twice daily during your admission. Please continue this for 21 days as an outpatient to ensure complete treatment of your tick borne illness. It is also recommended that you follow up with your PCP within the next week (Wednesday or Wednesday), we have sent a message to Dr. Guerrier's office for close follow up. It is recommended that you complete labs including CBC, CMP, and CRP prior to your PCP appointment. A discharge summary will be sent to your primary care physician to ensure continuity of care. Please bring this discharge summary with you to your next office appointment so that your provider can review it at that time. Medications: - New Medication: Doxycycline 100 mg PO BID for 21 days - If you have any issues filling these prescriptions, please call [phone] and ask to leave a message for Dr. Sheridan. Contact your Primary Care Provider if you experience: - Increased fatigue - New joint pain - Ongoing/elevated fever - Difficulty following your treatment plan or taking medications Call 911 or go to the emergency department if you experience: - Sudden, severe abdominal pain or nausea/vomiting - Severe chest pain, or chest pain that radiates (moves) to your jaw or arm - Sudden, severe shortness of breath or difficulty breathing It was a pleasure to be a part of your care, Dr. Hemalatha Sheridan Pending Studies at Discharge: Yes Studies:: Lyme, Babesia, Anaplasmosis DNA Stand-Alone Forms: [facility], Smoking Cessation Medications and DC Order Prescriptions: New doxycycline hyclate 100 mg Capsule 100 mg PO BID 21 Days Qty: 42 0RF Continued montelukast 10 mg tablet 10 mg PO QAM Qty: 90 1RF atorvastatin 20 mg tablet 20 mg PO QPM Qty: 90 1RF evtuylznuxqd-ukgfnqok-ccwwox tablet 1 tab PO DAILY amoxicillin 500 mg capsule 2,000 mg PO UD PRN (Reason: PRE DENTAL ) Qty: 4 Patient Comments: 1 HOUR PRIOR TO DENTAL APPOINTMENT aspirin 81 mg tablet,delayed release (DR/EC) 81 mg PO Q2D coenzyme Q10 [CoQ-10] 100 mg Capsule 200 mg PO DAILY biotin 5,000 mcg Tablet,Disintegrating 5,000 mcg PO DAILY omeprazole 20 mg capsule,delayed release(DR/EC) 20 mg PO QAM folic acid 1 mg tablet 2 mg PO QAM methotrexate sodium 2.5 mg tablet 15 mg PO WK Rx Instructions: take 6 tablets weekly cholecalciferol (vitamin D3) [Vitamin D3] 25 mcg (1,000 unit) Tablet 25 mcg PO Q2D prednisone 1 mg tablet 0.5 mg PO DAILY Discharge Orders: Discharge Order (Routine); Ordered 01/19/23 Ordered By: Hemalatha Sheridan Admission Data Admit Date/Time: 01/17/23 18:01 Attending Provider: Leonidas Moctezuma Admit Provider: Artemio Guan Primary Care Provider: Scarlet Guerrier Other Providers: Artemio Guan Other Interventions: Discharge Summary Assessment (RN) Last Done: 01/19/23 16:57 Supervising Physician Co-Signing Physician Notes I personally examined the patient and verified all lundberg points of history and exam, discussed case, and agree with decision making with Dr Sheridan feeling okay to go home. Comfortable with plan. Discussed that working diag nosis of tickborne infection is presumptive, but seems more probable than anything viral (given her overall pattern) anything more "typical" bacterial (given no obvious signs or symptoms after extensive review) or anything rheumatologic (given that she still is on steroids, it was not a massive shift in dose, she had fairly high fevers, and her aches are not consistent with her previous PMR symptoms) vitals noted, in general she is awake and alert pleasant no distress. HEENT normocephalic atraumatic mucous membranes moist. Breathing unlabored no accessory muscle use good effort. Skin shows no rashes no pallor or icterus. Neuro without focal deficits. Febrile illnessetiology not entirely clearbut given the predominance of tickborne illnesses in this community, as well as the smoldering but infectious appearing naturewe discussed initiating treatment with doxycycline first (risk/benefits/side effects reviewed) and then considering rheumatologic or other if she does not get better with doxycycline. Starting at today, discussed it may be Wednesday before she starts to notice improvement, but if she feels any worsening after that would definitely want her evaluated sooner rather than later. Set up with a PCP for next week, would follow-up CBC, CMP, CRP at follow-up visit unless otherwise clinically warranted. Resident Activity Tracking Resident Involvement: Resident Care Provided Care Provided: Adult Hospital Medicine
--- NOTE | 2023-01-19 19:30 | Billing Data ---
Date of Service January 19, 2023 Coding Level of Care Code 91395 IN/OBS DISCH 30 MIN/LESS
[2023-01-21 03:11] LABS: Babesia microti DNA Not Detected (Not Detected)
== END 2023-01-19 18:00 | disposition home or self-care (01) ==
LOC: ED 11:04 → 2W 11:04 → SUATTDRO 18:01 → 2W 19:26